=== PATIENT | female | born 1955 | race Caucasian/White ===

== ENCOUNTER 2016-05-21 09:02 | Day surgery (SDC) | payer OTHER ==
[~2016-05-21 09:02] MED LIST: IV START KIT ONE; LACTATED RINGERS 1,000 ML IV SCH; LACTATED RINGERS 1,000 ML ONE; ONDANSETRON 4 MG/2ML 2 ML VIAL IV ONE
[2016-05-21] MEDS ORDERED: ONDANSETRON 4 MG/2ML 2 ML VIAL ONE (09:09)
[2016-05-21] MEDS ORDERED: PROPOFOL 20 ML IV ONE (09:18)
[2016-05-21] MEDS ORDERED: FENTANYL 5 ML ONE (09:18)
== END 2016-05-21 10:10 | disposition home or self-care (01) ==
LOC: SDC 09:02
PROVIDERS: ATTEND Internal Medicine Gastroenterology
PROC: 0DJD8ZZ Inspection of Lower Intestinal Tract, Via Natural or Artificial Opening Endoscopic (ICD-10-PCS; principal; 2016-05-21)
DX: Z12.11 Encounter for screening for malignant neoplasm of colon (principal); K57.30 Diverticulosis of large intestine without perforation or abscess without bleeding; Z86.010 Personal history of colon polyps; Z80.0 Family history of malignant neoplasm of digestive organs; Z87.891 Personal history of nicotine dependence; G43.909 Migraine, unspecified, not intractable, without status migrainosus
CPT/HCPCS: 45378; J3010; J2405; J7120